=== PATIENT | female | born 1980 | race Caucasian/White ===

== ENCOUNTER 2017-05-05 07:30 | Day surgery (SDC) | payer OTHER ==
--- NOTE | 2017-05-02 10:46 | HISTORY AND PHYSICAL E ---
History and Physical NAME: ELIEL MALLOY : 1980 AGE: 36Y ADMITTED: 05/05/2017 ROOM: CHIEF COMPLAINT: Dysphagia. HISTORY OF PRESENT ILLNESS: Patient is known to me, 2008. Presented with abdominal pain. Family history of colon cancer. Her colonoscopy was benign. The patient does have history of anemia. Now she presented with dysphagia. Patient did have ultrasound. It shows fatty liver. Patient presented at this time for dysphagia. She did have cholecystectomy in 2009. The patient is referred by . Abdominal pain back in 2008. SOCIAL HISTORY: She is . Does not smoke. Does not drink. ALLERGIES: 1. CECLOR. 2. SEPTRA. PHYSICAL EXAMINATION: GENERAL: Pleasant, alert, oriented in no acute distress. VITAL SIGNS: Patient's blood pressure 130/90, pulse 80, respirations 18, temp is 98. HEAD, EYES, EARS, NOSE, THROAT: Normal. ABDOMEN: Soft. NEUROLOGIC: Negative. The major complaint is dysphagia. She said food gets stuck in her upper esophagus. Diarrhea, abdominal pain. Colonoscopy in 2008. CONCLUSION: Dysphagia. PLAN: Upper endoscopy scheduled for 05/05. DICTATING PHYSICIAN: CLEO FRIED M.D. [id number] PHY#: [id number] ID: [id number] JOB#: [id number] ACCT: [id number] cc:[facility], CLEO FRIED M.D. >
[~2017-05-05 07:30] MED LIST: EPINEPHRINE INJ 1 MG/10 ML DISP.SYRIN ONE; FLUMAZENIL INJ 0.5 MG/5 ML VIAL IV ONE; GLYCOPYRROLATE INJ 0.4 MG/2 ML VIAL ONE; MIDAZOLAM 2 MG/2 ML INJ ONE; NALOXONE HCL INJ/PF 0.4 MG/1 ML SDV ONE; ONDANSETRON HCL INJ/PF 4 MG/2 ML SDV ONE
[2017-05-05] MEDS: MIDAZOLAM 2 MG/2 ML INJ ONE ×2 (08:16→08:22)
[2017-05-05] MEDS: FENTANYL CITRATE INJ/PF 100 MCG/2 ML AMPUL ONE ×2 (08:18→08:23)
[2017-05-05 09:39] LABS: ABSOLUTE EOSINOPHILS # (AUTO) 0.2 10^3/uL (0.0-0.6); ABSOLUTE LYMPHOCYTES (AUTO) 1.7 10^3/uL (0.5-4.7); ABSOLUTE MONOCYTES (AUTO) 0.5 10^3/uL (0.1-1.4); ABSOLUTE NEUT (AUTO) 6.8 10^3/uL (1.7-8.2); BASOPHILS % (AUTO) 0.3 % (0-2); EOSINOPHILS % (AUTO) 2.2 % (0-6); HEMATOCRIT 32.7 % (36.0-47.0); HEMOGLOBIN 10.8 g/dL (12.0-15.5); HGB HCT DIFFERENCE -0.3; LYMPHOCYTES % (AUTO) 18.6 % (13-45); MEAN CORPUSCULAR HEMOGLOBIN 27.9 pg (27.0-33.4); MEAN CORPUSCULAR HGB CONC 32.9 g/dL (32.0-36.0); MEAN CORPUSCULAR VOLUME 85 fl (80-97); MONOCYTES % (AUTO) 4.9 % (3-13); RED BLOOD COUNT 3.86 10^6/uL (3.72-5.28); RED CELL DISTRIBUTION WIDTH 14.2 % (11.5-14.0); WHITE BLOOD COUNT 9.2 10^3/uL (4.0-10.5)
[2017-05-05 09:45] VITALS: BP 139/84
[2017-05-05 10:04] LABS: ALANINE AMINOTRANSFERASE 28 U/L (9-52); ALBUMIN 3.1 g/dL (3.5-5.0); ALKALINE PHOSPHATASE 64 U/L (38-126); AMYLASE 31 U/L (30-110); ANION GAP 12 (5-19); ASPARTATE AMINO TRANSFERASE 24 U/L (14-36); BILIRUBIN,DIRECT 0.3 mg/dL (0.0-0.4); BILIRUBIN,TOTAL 0.6 mg/dL (0.2-1.3); BLOOD UREA NITROGEN 10 mg/dL (7-20); CALCIUM 8.8 mg/dL (8.4-10.2); CARBON DIOXIDE 20 mmol/L (22-30); CHLORIDE 105 mmol/L (98-107); CREATININE RESULT 0.69 mg/dL (0.52-1.25); GLUCOSE 169 mg/dL (75-110); LIPASE 39.3 U/L (23-300); TOTAL PROTEIN 6.4 g/dL (6.3-8.2)
[2017-05-05 10:28] LABS: ERYTHROCYTE SEDIMENTATION RATE 53 mm/hr (0-20)
--- NOTE | 2017-05-09 10:03 | OPERATIVE REPORT E ---
Operative Report NAME: ELIEL MALLOY : 1980 AGE: 36Y DATE OF SURGERY: 05/05/2017 ROOM: PREOPERATIVE DIAGNOSES: 1. Dysphagia. 2. Reflux. 3. No weight loss. PROCEDURES: 1. Esophagoscopy. 2. Gastroscopy. 3. Duodenoscopy. SURGEON: CLEO FRIED M.D. ANESTHESIA: Difficult to sedate, 6 Versed, 150 fentanyl. That made her mildly sedated. TISSUE REMOVED OR ALTERED: Gastric biopsy for H. pylori workup. PROCEDURE: Baby scope passed under guided vision. No difficulty. Junction at 35 cm. No stricture. Mild esophagitis. Gastroscopy: Benign looking gastric polyps and mild gastritis. Duodenoscopy: Nonspecific duodenitis. No ulcers. No bleeding. No malignancy. PLAN: 1. Awaiting biopsy results. 2. Lab studies. 3. Serology for celiac disease and H. pylori. 4. I will check amylase, lipase, and chem profile. DICTATING PHYSICIAN: CLEO FRIED M.D. [id number] [facility]#: [id number] ID: [id number] JOB#: [id number] ACCT: [id number] cc:[facility] CLEO FRASER M.D. >
--- NOTE | 2017-05-09 10:07 | DISCHARGE SUMMARY E ---
Discharge Summary NAME: ELIEL MLALOY : 1980 AGE: 36Y ADMITTED: 05/05/2017 DISCHARGED: 05/05/2017 05/05/2017 HISTORY: This 36-year-old female presented with dysphagia and reflux. Upper scope shows no ulcers, no malignancy, junction at 35, benign-looking gastric polyps, mild gastritis, duodenitis. DISCHARGE PLAN: Lab studies, soft diet, hold aspirin. Patient is to see us in the office in the next few days. DICTATING PHYSICIAN: CLEO FRIED M.D. [id number] PHY#: [id number] ID: [id number] JOB#: [id number] ACCT: [id number] cc:CLEO FRIED M.D. >
[2017-05-12 07:04] LABS: DEAMIDATED GLIADIN IGA AB 5 units (0-19); DEAMIDATED GLIADIN IGG AB 3 units (0-19); IMMUNOGLOBULIN A 2 222 mg/dL (87-352); T-TRANSGLUTAMINASE (TTG) IGG <2 U/mL (0-5)
== END 2017-05-05 10:12 | disposition home or self-care (01) ==
LOC: END 07:30
PROVIDERS: ATTEND Specialist
PROC: 0DB68ZX Excision of Stomach, Via Natural or Artificial Opening Endoscopic, Diagnostic (ICD-10-PCS; principal; 2017-05-05 08:00)
DX: K21.9 Gastro-esophageal reflux disease without esophagitis (principal); K29.50 Unspecified chronic gastritis without bleeding; K76.0 Fatty (change of) liver, not elsewhere classified; Z88.1 Allergy status to other antibiotic agents; Z80.0 Family history of malignant neoplasm of digestive organs
CPT/HCPCS: 43239; 86677 ×3; 36415; 82150; 83690; 85025; 85652; 80053; 83520 ×5; 88342 ×2; 88305 ×2; J2250; J3010; J0171; J2310; J2405; J3490